=== PATIENT | female | born 1970 | race Caucasian/White ===

== ENCOUNTER 2017-01-31 15:22 | Emergency (ER) ==
[2017-01-31 15:32] VITALS: BP 119/83; TEMP 97.6; BMI 46.0
[2017-01-31] MEDS ORDERED: KEFLEX PO STA (15:39)
[2017-01-31 15:49] LABS: BASOPHILS % (AUTO) 0.4 % (0.0-3.0); EOSINOPHILS # (AUTO) 0.1 K/ul (0.0-0.7); EOSINOPHILS % (AUTO) 1.6 % (0.0-7.0); HEMOGLOBIN 13.6 g/dl (12.0-16.0); IMMATURE GRANULOCYTE % (AUTO) 0.3 % (0.0-5.0); LYMPHOCYTES # (AUTO) 2.3 K/uL (0.60-3.4); LYMPHOCYTES % (AUTO) 25.3 (10.0-50.0); MEAN CORPUSCULAR HEMOGLOBIN 29.7 pg (27.0-31.0); MEAN CORPUSCULAR HGB CONC 33.2 (31.8-35.4); MEAN CORPUSCULAR VOLUME 89.5 fl (81.0-99.0); MONOCYTES # (AUTO) 0.7 K/uL (0.4-2.0); MONOCYTES % (AUTO) 8.2 (0-10); NEUTROPHILS # (AUTO) 5.7 K/ul (2.0-6.9); NEUTROPHILS % (AUTO) 64.2; PLATELET COUNT 284 10^3/uL (140-440); RED BLOOD COUNT 4.58 10^6/ul (4.20-5.40); WHITE BLOOD COUNT 8.91 K/ul (4.6-10.2)
--- NOTE | 2017-01-31 16:14 | ED.PDOC ---
General ED Provider: Dr. ADILSON SERRANO JR Chief Complaint: Chest Pain Stated Complaint: had lymph node removed and lumpectomy to left breast 6 months ago. yesterday noticed some swelling above left breast yesterday and worse today. also started having chest pain around noon today. has been having intermittent chest pain for 6 months. gets an echo every 3 months. states pain is left sided and goes to shoulder blade. also complains of feet swelling for 1 week 97.6 89 18 96% 119/83 10 Time Seen by Physician: 16:12 Mode of Arrival: Wheelchair Information Source: Patient Exam Limitations: No limitations Primary Care Provider: ESAU WADDELL Nursing and Triage Documentation Reviewed and Agree: No Review of Systems - Review Of Systems Constitutional: Reports: No symptoms Eyes: Reports: No symptoms Ears, Nose, Mouth, Throat: Reports: No symptoms Respiratory: Reports: No symptoms Cardiac: Reports: Chest pain GI: Reports: No symptoms : Reports: No symptoms Musculoskeletal: Reports: No symptoms Skin: Reports: No symptoms (tender right chest wall) Neurological: Reports: No symptoms Endocrine: Reports: No symptoms Hematologic/Lymphatic: Reports: No symptoms All Other Systems: Other Past Medical History - Past Medical History Previously Healthy: Yes Endocrine: Reports: Hypothyroid Cardiovascular: Reports: None Respiratory: Reports: None Hematological: Reports: None Gastrointestinal: Reports: None Genitourinary: Reports: None Neuro/Psych: Reports: None Musculoskeletal: Reports: None Cancer: Reports: Breast (lumpectomy left breast with lymph node removed. and chemo) Last Menstrual Period: none - Surgical History General Surgical History: Reports: Tubal ligation, Appendectomy, Other ( lumpection and lymph node left breast 2014) - Family History Family History: Reports: Unknown - Social History Smoking Status: Current every day smoker, Light tobacco smoker Hx Substance Use: No Alcohol Screening: None Physical Exam - Physical Exam Appearance: Well-appearing, Obese Pain Distress: Moderate Eyes: TRIXIE, EOMI, Conjunctiva clear ENT: Ears normal, Nose normal, Oropharynx normal Neck: Supple Respiratory: Airway patent, Breath sounds clear, Breath sounds equal, Respirations nonlabored Cardiovascular: RRR, Pulses normal, No rub, No murmur GI/: Soft, Nontender, No masses, Bowel sounds normal, No Organomegaly Musculoskeletal: Normal strength, ROM intact, No edema, No calf tenderness Skin: Warm, Dry, Normal color (left chest tender above breast into the upper outer quadeant to within 6cm of areola without medial tenderness areq slightly war to touch slight prominence consistent with early cellulitis all tender consistent with surgery cvhemo and possible cellutitis) Neurological: Sensation intact, Motor intact, Reflexes intact, Cranial nerves intact, Alert, Oriented Psychiatric: Affect appropriate, Mood appropriate Interpretation - Radiology Interpretation Radiology Interpretation By: Radiologist Radiology Results: Negative Exam Interpreted: CXR (right portacath) - EKG Interpretation Time of EKG #1: 16:19 Rate: Normal Rhythm: Sinus Ectopy: None [place]: NL ST Segment: Normal Critical Care Note - Critical Care Note Total Time (mins): 0 Course - Course Hematology/Chemistry: 01/31/17 15:40 01/31/17 15:40 Orders, Labs, Meds: Lab Review 01/31/17 15:40 WBC 8.91 RBC 4.58 Hgb 13.6 Hct 41.0 MCV 89.5 MCH 29.7 MCHC 33.2 RDW Coeff of Joe 13.6 Plt Count 284 Immature Gran % (Auto) 0.3 Neut % (Auto) 64.2 Lymph % (Auto) 25.3 Dukes % (Auto) 8.2 Eos % (Auto) 1.6 Baso % (Auto) 0.4 Immature Gran # (Auto) 0.0 Neut # 5.7 Lymph # 2.3 Dukes # 0.7 Eos # 0.1 Baso # 0.0 D-Dimer 0.65 Sodium 138 Potassium 4.1 Chloride 101 Carbon Dioxide 29 Anion Gap 12.1 BUN 10 Creatinine 0.84 Estimated GFR (MDRD) 73.00 BUN/Creatinine Ratio 11.90 Glucose 99 Calcium 9.2 Total Bilirubin 0.25 AST 17 ALT 21 Alkaline Phosphatase 105 H Total Creatine Kinase 48 Troponin I < 0.0100 B-Natriuretic Peptide < 10 Total Protein 6.9 Albumin 3.3 L Globulin 3.6 Albumin/Globulin Ratio 0.92 Orders Category Date Time Status EKG-(ED ONLY) Stat CARDIO 01/31/17 15:30 Completed ED PERSONNEL RECORDS CLERK APPLIED .ONCE EMERGENCY 01/31/17 15:30 Active ED IV/MEDIPORT/POWERPORT .ONCE EMERGENCY 01/31/17 15:30 Active B-TYPE NATRIURETIC PEPTIDE Stat LAB 01/31/17 15:40 Completed CBC W/ AUTO DIFF Stat LAB 01/31/17 15:40 Completed COMPREHENSIVE METABOLIC PANEL Stat LAB 01/31/17 15:40 Completed CREATINE KINASE Stat LAB 01/31/17 15:40 Completed D-DIMER Stat LAB 01/31/17 15:40 Received TROPONIN I Stat LAB 01/31/17 15:40 Completed 0.9 % Sodium Chloride [Saline Flush] MEDS 01/31/17 15:30 Ordered 1 syr IVF PRN PRN Cephalexin [Keflex] MEDS 01/31/17 15:39 Discontinued 500 mg PO ONCE STA CHEST, 1V AP ONLY Stat RADS 01/31/17 15:30 Taken Medications Generic Name Dose Route Start Last Admin Trade Name Freq PRN Reason Stop Dose Admin Sodium Chloride 1 syr 01/31/17 15:30 Saline Flush IVF PRN PRN To flush IV Discontinued Medications Generic Name Dose Route Start Last Admin Trade Name Freq PRN Reason Stop Dose Admin Cephalexin 500 mg 01/31/17 15:39 01/31/17 16:01 Keflex PO 01/31/17 15:40 500 mg ONCE STA Administration Vital Signs: Temp Pulse Resp BP Pulse Ox 01/31/17 15:25 97.6 F 89 18 119/83 96 RUPESH Risk Score RUPESH Risk Score: Risk Score Odds of by 30D 0 0.1 (0.1-0.2) 1 0.3 (0.2-0.3) 2 0.4 (0.3-0.5) 3 0.7 (0.6-0.9) 4 1.2 (1.0-1.5) 5 2.2 (1.9-2.6) 6 3.0 (2.5-3.6) 7 4.8 (3.8-6.1) Departure - Departure Time of Disposition: 16:14 Disposition: HOME SELF-CARE Discharge Problem: Cellulitis Instructions: Cellulitis (ED) Condition: Good Pt referred to PMD for follow-up: Yes Additional Instructions: recheck two days pmd inform surgeon and oncologist of symptoms check temperature twice a day expect resolution in 2-3 days Tylenol for pain may use Motrin for pain not controlled Prescriptions: Cephalexin [Keflex] 500 mg PO QID #40 capsule Allergies/Adverse Reactions: Allergies Iodinated Contrast Media - Oral and Adverse Reaction (Verified 01/31/17 15:32) Penicillins Adverse Reaction (Verified 01/31/17 15:32) tramadol Adverse Reaction (Verified 01/31/17 15:32) Home Medications: Ambulatory Orders Alprazolam [Xanax] 1 mg PO TID PRN 09/25/16 Hydrocodone/Acetaminophen [Mora 10-325 Tablet] 1 each PO Q6HR PRN #14 tablet Ipratropium/Albuterol Sulfate [Combivent Respimat Inhal [place]] 4 gm IH BID PRN # 1 aer.w.adap 11/17/16 Cephalexin [Keflex] 500 mg PO QID #40 capsule 01/31/17 Hydrochlorothiazide 25 mg PO DAILY 01/31/17
[2017-01-31 16:16] LABS: ALANINE AMINOTRANSFERASE 21 U/L (12-78); ALBUMIN 3.3 g/dL (3.4-5.0); ALBUMIN/GLOBULIN RATIO 0.92; ALKALINE PHOSPHATASE 105 U/L (42-98); ANION GAP 12.1; ASPARTATE AMINO TRANSFERASE 17 U/L (15-37); BILIRUBIN,TOTAL 0.25 mg/dL (0.00-1.20); BLOOD UREA NITROGEN 10 mg/dL (7-18); CALCIUM 9.2 mg/dL (8.2-10.2); CARBON DIOXIDE 29 mmol/L (21-32); CHLORIDE 101 mmol/L (98-107); CREATINE KINASE 48 U/L; CREATININE 0.84 mg/dL (0.60-1.30); GLUCOSE 99 mg/dL (70-110); POTASSIUM 4.1 mmol/L (3.5-5.10); SODIUM 138 mmol/L (136-145); TOTAL PROTEIN 6.9 g/dL (6.4-8.2)
--- NOTE | 2017-01-31 16:19 | DI ---
EXAM: Chest one view. CLINICAL INDICATION: Chest pain. COMPARISON: 12/21/2016. FINDINGS: A single AP radiograph of the thorax is provided. There is no interval change. There is a right subclavian Port-A-Cath in good position. The remaind er of the pulmonary parenchyma is clear and there is no pleural abnormality. The cardiomediastinal silhouette and visualized bony structures are unchanged. There are surgical clips projected over the left anterior chest, likely from breast surgery. IMPRESSION: 1. No interval change, with no acute pulmonary abnormality. 2. Right subclavian Port-A-Cath in good position.
== END 2017-01-31 16:30 | disposition home or self-care (01) ==
LOC: ED 15:22
DX: L03.313 Cellulitis of chest wall (principal); Z98.890 Other specified postprocedural states; F17.210 Nicotine dependence, cigarettes, uncomplicated; Z79.899 Other long term (current) drug therapy
CPT/HCPCS: 36415; 80053; 82550; 83880; 84484; 85025; 85379; 93005; 93010; 99283

== ENCOUNTER 2017-04-23 21:59 | Emergency (ER) ==
[2017-04-23 22:09] VITALS: BP 145/86; TEMP 99; BMI 45.1
[2017-04-23] MEDS: DILAUDID 1 MG/ML SYRINGE IM STA (22:29)
[2017-04-23] MEDS: ZOFRAN 4 MG/2 ML IM STA (22:29)
--- NOTE | 2017-04-23 22:56 | CT ---
Exam: CT left lower extremity without contrast History: Injury and pain Technique: [address] of the left ankle with multiplanar reformations FINDINGS: The tibiotalar joint is normal. Normal subtalar joint. The calcaneus and talus are lady l. Variant ossicle medial to the navicular. No acute soft tissue abnormalities are seen. Impression: 1. No acute findings of the ankle 2. Os tibiale externum, variant. Correlate for point tenderness.
--- NOTE | 2017-04-23 22:59 | CT ---
Exam: CT left lower extremity without contrast History: Injury and pain of the left foot and ankle Technique: [address] of the left foot with multiplanar reformations FINDINGS: Normal ankle and midfoot. Normal forefoot. No osteoarthritic change. 5 mm spurring on t he plantar surface of the calcaneus. No soft tissue abnormalities of significance. Variant ossicle medial to the navicular. Impression: 1. No acute abnormalities of the left foot or ankle. 2. Minor spine minor plantar spurring. 3. Variant os tibiale externum
--- NOTE | 2017-04-23 23:52 | ED.PDOC ---
General ED Provider: Dr. LAZARUS CALIXTO-ER Chief Complaint: Extremity Pain/Injury Stated Complaint: a plastic table slid onto my foot and ankle Time Seen by Physician: 22:05 Mode of Arrival: Walk-In Information Source: Patient Exam Limitations: No limitations Primary Care Provider: ESAU WADDELL Nursing and Triage Documentation Reviewed and Agree: Yes Musculoskeletal Complaint Exam - Ankle/Foot Complaint/Exam Location of Injury: Reports: Left, Ankle, Foot Mechanism of Injury: Reports: Trauma Onset/Duration: 1hr Symptoms Are: Reports: Still present Onset of Pain: Reports: Immediate Initial Severity: Mild Current Severity: Moderate Location: Reports: Discrete (left foot and ankle) Character: Reports: Dull, Aching Aggravating: Reports: Movement, Weight bearing, Prolonged standing Able to Bear Weight: Yes Associated Signs and Symptoms: Reports: Swelling, Bruising. Denies: Redness, Fever, Weakness, Numbness, Tingling Gout Risk Factors: Reports: None Lower Extremity Findings: Present: Swelling, Ecchymosis, Other joint pain, Tenderness, Limited range of motion Tenderness: Present: Midfoot, Metatarsals Limited Range of Motion: Present: Inversion, Eversion, Dorsiflexion Differential Diagnosis: Contusion Review of Systems - Review Of Systems Constitutional: Reports: No symptoms Eyes: Reports: No symptoms Ears, Nose, Mouth, Throat: Reports: No symptoms Respiratory: Reports: No symptoms Cardiac: Reports: No symptoms GI: Reports: No symptoms : Reports: No symptoms Musculoskeletal: Reports: Muscle pain Skin: Reports: No symptoms Neurological: Reports: No symptoms Endocrine: Reports: No symptoms Hematologic/Lymphatic: Reports: No symptoms All Other Systems: Reviewed and Negative Past Medical History - Past Medical History Previously Healthy: Yes Endocrine: Reports: Hypothyroid Cardiovascular: Reports: None Respiratory: Reports: None Hematological: Reports: None Gastrointestinal: Reports: None Genitourinary: Reports: None Neuro/Psych: Reports: None Musculoskeletal: Reports: None Cancer: Reports: Breast (lumpectomy left breast with lymph node removed. and chemo) Last Menstrual Period: 5 YEARS AGO - Surgical History General Surgical History: Reports: Tubal ligation, Appendectomy, Other ( lumpection and lymph node left breast 2014) - Family History Family History: Reports: Unknown - Social History Smoking Status: Current every day smoker, Heavy tobacco smoker Hx Substance Use: No Alcohol Screening: None Lives: With family - Immunizations Tetanus Shot up to Date: (UNKNOWN) Physical Exam - Physical Exam Appearance: Well-appearing, No pain distress, Well-nourished Pain Distress: Mild Eyes: TRIXIE, EOMI, Conjunctiva clear ENT: Ears normal, Nose normal, Oropharynx normal Neck: Supple Respiratory: Airway patent Cardiovascular: RRR GI/: Soft, Nontender, No masses, Bowel sounds normal, No Organomegaly Musculoskeletal: Limited ROM Skin: Warm, Dry, Normal color Neurological: Sensation intact, Motor intact, Reflexes intact, Cranial nerves intact, Alert, Oriented Psychiatric: Affect appropriate, Mood appropriate Interpretation - Radiology Interpretation Radiology Interpretation By: Radiologist Radiology Results: Negative Exam Interpreted: CT Scan Critical Care Note - Critical Care Note Total Time (mins): 0 Course - Course Orders, Labs, Meds: Orders Category Date Time Status CRUTCHES [ED CRUTCHES] .ONCE EMERGENCY 04/23/17 23:48 Active ED DAR WRAP .ONCE EMERGENCY 04/23/17 23:48 Active ED SPLINT APPLICATION .ONCE EMERGENCY 04/23/17 23:48 Active Hydromorphone HCl [Dilaudid 1 mg/ml Syringe] MEDS 04/23/17 22:16 Discontinued 1 mg IM ONCE STA Ondansetron HCl/Pf [Zofran 4 mg/2 ml] MEDS 04/23/17 22:16 Discontinued 4 mg IM ONCE STA CT ANKLE LEFT WITHOUT CONTRAST Stat RADS 04/23/17 22:[address] FOOT LEFT WITHOUT CONTRAST Stat RADS 04/23/17 22:15 Completed Medications Discontinued Medications Generic Name Dose Route Start Last Admin Trade Name Freq PRN Reason Stop Dose Admin Hydromorphone HCl 1 mg 04/23/17 22:16 04/23/17 22:29 Dilaudid 1 Mg/Ml Syringe IM 04/23/17 22:17 1 mg ONCE STA Administration Ondansetron HCl 4 mg 04/23/17 22:16 04/23/17 22:29 Zofran 4 Mg/2 Ml IM 04/23/17 22:17 4 mg ONCE STA Administration Vital Signs: Temp Pulse Resp BP Pulse Ox 04/23/17 22:00 99 F 89 18 145/86 H 95 Departure - Departure Time of Disposition: 23:51 Disposition: HOME SELF-CARE Discharge Problem: Contusion Qualifiers: Encounter type: initial encounter Contusion area: foot Laterality: left Qualifier Code: (S90.32XA) Contusion of left foot, initial encounter Instructions: Contusion in Adults (ED) Condition: Good Pt referred to PMD for follow-up: Yes Additional Instructions: stay in splint and use crutches--ice and elevate--norco 7.5mg q 6hrs prn [id number] --f/u with pcp next week Allergies/Adverse Reactions: Allergies Iodinated Contrast Media - Oral and Adverse Reaction (Verified 01/31/17 15:32) Home Medications: Ambulatory Orders Alprazolam [Xanax] 1 mg PO TID PRN 09/25/16 Ipratropium/Albuterol Sulfate [Combivent Respimat Inhal [place]] 4 gm IH BID PRN # 1 aer.w.adap 11/17/16 Furosemide [Lasix Tab] 10 mg PO QDAC 04/23/17 Ranitidine HCl [Acid Control] 150 mg PO DAILY PRN 04/23/17
== END 2017-04-24 01:02 | disposition home or self-care (01) ==
LOC: ED 21:59
DX: S90.32XA Contusion of left foot, initial encounter (principal); W23.0XXA Caught, crushed, jammed, or pinched between moving objects, initial encounter
CPT/HCPCS: 96372; 99283

== ENCOUNTER 2017-07-07 14:33 | Outpatient (CLI) ==
--- NOTE | 2017-07-07 15:05 | DI ---
EXAM: Lumbar spine five views, including oblique views HISTORY: Lumbar spine pain COMPARISON: 09/21/2015 TECHNIQUE: Five views lumbar spine were performed, including oblique views FINDINGS: Sacroiliac joints intact. Sacral arcuate intact. Vertebral bodies normal height. No fr acture. No subluxation. Small marginal osteophyte formation. Intervertebral disc spaces maintaine d. Mild multilevel facet arthrosis. IMPRESSION: Mild chronic discogenic degenerative disease and facet arthrosis.
== END 2017-07-07 14:34 | disposition home or self-care (01) ==
LOC: RAD 14:33
PROVIDERS: ATTEND Physician Assistant
DX: M54.5 Low back pain (principal)